=== PATIENT | male | born 2000 | race Caucasian/White ===

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

== ENCOUNTER 2020-08-09 08:24 | Emergency (ER) | payer SELFPAY ==
[2018-11-08 13:01] VITALS: BMI 21.5
[2020-08-09 08:28] VITALS: BP 133/97; PULSE 86; RESP 14; TEMP 37; O2SAT 99; BMI 18.3
--- NOTE | 2020-08-09 09:03 | CT_ITS ---
STUDY: CT ABDOMEN AND PELVIS WITH CONTRAST REASON FOR EXAM: Male, 20 years old. RLQ pain -- IV PO Contrast RADIATION DOSAGE (If Supplied By Facility): CTDIvol = ( 11.26 ) mGy, DLP = ( 317.72 ) mGycm TECHNIQUE: Transaxial images were obtained from the dome of the diaphragm to the symphysis pubis with oral contrast. Oral and IV Gastrografin and 100mL Isovue-370 was administered. Sagittal and coronal images were reconstructed. Individualized dose optimization techniques were used for this CT. COMPARISON: None. FINDINGS: The visualized lung bases are unremarkable. The visualized portions of the heart are within normal limits. Minimal degree of the periportal edema. Normal gallbladder and extrahepatic biliary system. Normal spleen. Normal pancreas. Normal bilateral adrenal glands. Normal right kidney. Normal left kidney. Normal visualized stomach. Normal small intestine. Normal colon. The appendix is visualized and appears normal. Normal abdominal aorta. Normal inferior vena cava. Normal retroperitoneum. Normal urinary bladder. Normal abdominal wall. Normal osseous structures. CT/Abdomen/Pelvis WITH Contrast IMPRESSION: Minimal degree of periportal edematous changes of the liver. Electronically Signed: Dennis Biggs MD at 11:10 EDT , Service support ,
--- NOTE | 2020-08-09 09:03 | ED.VIS.GEN ---
History of Present Illness Chief Complaint: Flank Pain Informant: Patient Narrative: 20-year-old male with no significant past medical history presenting with right lower quadrant pain. He states that it started in the right lower quadrant on Sunday and at first it was tolerable. Over the past couple of days it has gotten worse. He has pain with ambulation and even just moving his leg on the right. Patient states that the car ride makes it hurt worse. He has had diarrhea without hematochezia or melena. Patient has nausea and vomiting but has been able to hold down some fluids. He denies a fever. Patient denies any urinary complaints. He is not had any abdominal trauma. Past Medical History - Allergies and Home Meds Allergies/Adverse Reactions: Allergies No Known Allergies Allergy (Verified 08/09/20 08:27) Primary Care Physician: [facility] [Outside] Care Physician,No Primary [Primary Care Provider] - Prior records reviewed: Yes Past Medical History: - - No significant medical history Surgical History: noncontributory Lives: Spouse/ Significant Other Smoking Status: Never smoker Alcohol: None Drugs: None Review of Systems General: Denies: Chills, Fever, Sweats Eyes: Denies: Visual changes - bilaterally, Diplopia ENT: Denies: Rhinorrhea, Sore throat Cardiovascular: Denies: Chest pain, Palpitations Respiratory: Denies: Dyspnea, Cough, Dyspnea on exertion Gastrointestinal: Reports: Abdominal pain, Nausea, Vomiting, Diarrhea. Denies: Melena, Hematochezia Genitourinary: Denies: Dysuria, Hematuria, Frequency Musculoskeletal: Reports: Myalgias, Arthralgias Skin: Denies: Rash, Abscess Neurological: Denies: Headache, Weakness Psych: Denies: Depression, Anxiety Endocrine: Denies: Polyuria, Polydipsia Physical Exam Vital Signs/Narrative: Vital Signs Temp Pulse Resp BP Pulse Ox 08/09/20 08:28 98.6 F 86 14 133/97 H 99 Inital Vital Signs reviewed: Yes General: Well nourished, No Acute Distress Head: Normocephalic, Atraumatic Eyes: Perrl, EOMI. Negative for: Pale conjunctiva, Scleral icterus ENT: Moist mucous membranes, No rhinorrhea Cardiovascular: Regular rate, Regular rhythm Respiratory: No distress, CTA bilaterally Abdomen: Soft, Nondistended, Tender - Tenderness to palpation right lower quadrant over McBurney's point. , Obturator sign. Negative for: Ventral hernia, Inguinal hernia Back: Nontender, Normal Inspection. Negative for: CVA tenderness Extremities: Nontender, No edema Skin: Normal color, No rash Neurological: Alert, Oriented x3, Cranial nerves II-XII grossly intact Psychological: Normal affect, Normal Mood Diagnostic/Tx/Re-eval Clinical Impression(s) from Imaging Studies Abdomen/Pelvis CT 08/09/20 09:03 IMPRESSION: Minimal degree of periportal edematous changes of the liver. Electronically Signed: Dennis Biggs MD at 11:10 EDT , Service support , Gallbladder Ultrasound 08/09/20 11:56 IMPRESSION: Starry jesús appearance of the hepatic parenchyma. Acute hepatitis should be ruled out. Electronically Signed: Dennis Biggs MD at 13:18 EDT , Service support , Laboratory Data 08/09/20 08/09/20 08/09/20 09:15 09:20 09:20 WBC 3.5 L RBC 5.22 Hgb 14.7 Hct 45.4 MCV 87.0 MCH 28.2 MCHC 32.4 RDW Std Deviation 39.9 RDW Coeff of Janell 12.6 Plt Count 236 MPV 10.4 Immature Gran % (Auto) 0.300 Neut % (Auto) 70.1 H Lymph % (Auto) 21.7 [place] % (Auto) 6.4 Eos % (Auto) 0.6 Baso % (Auto) 0.9 Absolute Neuts (auto) 2.4 Absolute Lymphs (auto) 0.75 L Nucleated RBC % 0 Sodium 141 Potassium 3.3 L Chloride 103 Carbon Dioxide 29.0 Anion Gap 9 BUN 14 Creatinine 0.88 Estim Creat Clear Calc 118.70 Est GFR (MDRD) Af Amer 140 Est GFR (MDRD) Non-Af 115 BUN/Creatinine Ratio 15.8 Glucose 95 Calcium 9.6 Total Bilirubin 4.40 H AST 28 ALT 25 Alkaline Phosphatase 82 Total Protein 7.9 Albumin 4.7 Globulin 3.2 Albumin/Globulin Ratio 1.5 Lipase 63 L Urine Color Yellow Urine Clarity Sl. Cloudy Urine pH 5.0 Ur Specific [place] 1.030 Urine Protein 30 H Urine Glucose (UA) Normal Urine Ketones 150 H Urine Occult Blood 10 H Urine Nitrite Negative Urine Bilirubin Negative Urine Urobilinogen Normal Ur Leukocyte Esterase Negative Urine RBC 0 SEEN Urine WBC 0 SEEN Ur Squamous Epith Cells 0 SEEN Urine Bacteria RARE Urine Mucus 1+ - Medical Decision Making Plan 20-year-old male presenting with right lower quadrant pain. Patient had lab work drawn which showed he was leukopenic and lymphopenic. Patient does not have any respiratory complaints. He has no body aches or chills. He states he has no medical problems. His other lab work was unremarkable exception of an elevated bilirubin at 4.4 his other LFTs were normal.. CT of the abdomen pelvis with p.o. and IV contrast showed no appendicitis, however it did show some periportal edema. On reevaluation when I palpate the patient's right upper quadrant he has mild tenderness but does not have a Givens sign. He had ultrasound of the right upper quadrant which showed a starry jesús appearance and recommended ruling out hepatitis. Patient's mother then stated that he had had all of his immunizations growing up. He has no risk factors for hepatitis. I did send a hepatitis panel. Given this is a send out I recommended that they follow-up for this result. Patient does not have insurance or a primary care physician. Recommended [facility] for follow-up. He did acknowledge understanding. He is given return precautions. Patient stable at this time. Impression: 1. Elevated bilirubin 2. Right lower quadrant pain ED Disposition - Plan for ED Patient: Disposition: Home or Assisted Living Instructions: ED Unknown Causes of Abdominal ... Referrals: Care Physician,No Primary [Primary Care Provider] - [facility] [Outside] Additional Instructions: Your bilirubin is elevated at 4.4 today and your other liver function tests are normal. We are pending a hepatitis panel. Please follow-up and obtain primary care. He will likely have to call medical records to obtain results. Return for any new or worsening symptoms.
[2020-08-09] MEDS: Morphine 4 MG/ML Syringe IV ×2 (09:24→12:30)
[2020-08-09] MEDS: Ondansetron 4 MG/2 ML Vial IV ×2 (09:24→12:30)
[2020-08-09] MEDS: 0.9% Normal Saline 1,000 ML 1000 ML IV (09:25)
[2020-08-09 09:28] LABS: Red Blood Cells-Urine 0 SEEN /hpf (0-5); Squamous Epithelial Cells - UA 0 SEEN /hpf (0-5); White Blood Cells 0 SEEN /hpf (0-5)
[2020-08-09 09:32] LABS: Absolute Lymphocyte Count 0.75 X10^3/uL (0.83-4.51); Absolute Neutrophil Count 2.4 X10^3/uL (2.0-7.7); Basophil# 0.03 X10^3/uL; Basophil% 0.9 % (0-1); Eosinophil# 0.02 X10^3/uL; Eosinophils% 0.6 % (0-5); Hematocrit 45.4 % (40-54); Hemoglobin 14.7 g/dL (13.0-16.5); Lymphocyte # 0.75 X10^3/ul (0.83-4.51); Lymphocyte % 21.7 % (19-41); Mean Corp Hgb Conc 32.4 g/dL (32-36); Mean Corpuscular Hgb 28.2 pg (27.0-32.0); Mean Platelet Vol. 10.4 fl (6.2-12.0); Monocyte# 0.22 X10^3/uL; Monocyte% 6.4 % (0-10); NRBC Flagged by Analyzer 0 % (0-5); Neutrophil # 2.43 X10^3/uL (2.7-7.7); Neutrophil % 70.1 % (47-70); Platelet Count 236 K/mm3 (150-450); RBC Distribution Width CV 12.6 % (11.6-14.6); RBC Distribution Width SD 39.9 fl (35.1-43.9); Red Blood Count 5.22 M/mm3 (4.6-6.2); White Blood Count 3.5 K/mm3 (4.4-11.0)
[2020-08-09 09:37] LABS: Color, Urine Yellow (Yellow); Glucose, Dipstick Normal (Normal); Leukocyte Esterase-Dipstick Negative /ul (Negative); Nitrite-Dipstick Negative (Negative); Occult Blood-Urine 10 /ul (Negative); Protein-Dipstick 30 mg/dl (Negative); Urine Bilirubin Dipstick Negative (Negative); Urine Clarity Sl. Cloudy (Clear); Urine Urobilinogen Normal (Normal)
[2020-08-09 09:39] LABS: Ketone-Dipstick 150 mg/dl (Negative)
[2020-08-09 09:43] LABS: Bacteria RARE /hpf (None Seen); Mucous, Urine 1+ /hpf (<or=2+)
[2020-08-09 09:47] LABS: ALB/GLOB Ratio 1.5 RATIO (0.9-2.4); AST(SGOT) 28 U/L (15-37); Alanine Aminotransfer ALT/SGPT 25 U/L (16-61); Albumin, Serum 4.7 g/dL (3.2-5.0); Alkaline Phosphatase 82 U/L (45-117); Anion Gap 9 (5-15); BUN 14 mg/dL (7-18); BUN/Creat Ratio 15.8 RATIO (10-20); Calcium,Total 9.6 mg/dL (8.5-10.1); Chloride 103 mmol/L (98-107); Creatinine, Serum 0.88 mg/dL (0.70-1.30); EST Glomerular Filtration Rate 115 mL/min (>60); Est Glom Filt Rate - Afr Amer 140 mL/min (>60); Globulin 3.2 g/dL (2.2-4.2); Glucose 95 mg/dL (74-106); Lipase 63 U/L (73-393); Potassium 3.3 mmol/L (3.5-5.1); Protein, Total 7.9 g/dL (6.4-8.2); Sodium Level 141 mmol/L (136-145)
[2020-08-09 10:40] VITALS: BP 109/62; PULSE 65; RESP 18; O2SAT 100
--- NOTE | 2020-08-09 11:56 | US_ITS ---
STUDY: ABDOMINAL ULTRASOUND - RIGHT UPPER QUADRANT REASON FOR VISIT: Male, 20 years old 3 day history of right upper quadrant pain. TECHNIQUE: Ultrasound evaluation of the right upper quadrant was performed with real-time and static iraheta-scale imaging. TECHNICAL QUALITY: Adequate. COMPARISON: Comparison is made with prior CT scan of the abdomen and pelvis done earlier in the day. FINDINGS: Liver: The liver measures 14.3 cm. There is evidence of a starry jesús appearance of the hepatic parenchyma suggestive of centrilobular edema. Acute hepatitis should be ruled out. The bile ducts are within normal limits. There is hepatic color flow. The direction of portal flow is hepatopetal. There is no demonstrated mass lesion. Gallbladder: Normal distended gallbladder. The gallbladder wall measures 2 mm. There is a negative sonographic Givens''s sign. There is no pericholecystic fluid. There are no gallstones. Common Bile Duct (C.B.D.): The common bile duct measures 2 mm. Pancreas: Normal size of the head, body and tail of the pancreas. There is normal echogenicity of the pancreas. There is no demonstrated pancreatic mass or cyst. Right Kidney: Normal size of the right kidney. The right kidney measures 10.3 cm x 5.6 cm x 4.9 cm. Normal renal cortex. The right cortex measures 1.4 cm. There is no demonstrated renal mass or cyst. There is no right hydronephrosis. US/Gallbladder IMPRESSION: Starry jesús appearance of the hepatic parenchyma. Acute hepatitis should be ruled out. Electronically Signed: Dennis Biggs MD at 13:18 EDT , Service support ,
[2020-08-09 12:50] VITALS: BP 121/77; PULSE 69; RESP 18; O2SAT 100
[2020-08-09 14:16] VITALS: BP 117/76; PULSE 62; RESP 14; O2SAT 98
[2020-08-10 08:09] LABS: HEPATITIS B SURFACE AG Negative (Negative); Hepatitis A IgM Antibody Negative (Negative); Hepatitis B Core AB IgM Negative (Negative)
[2020-08-10 12:48] LABS: Hep C Antibodies <0.1 s/co ratio (0.0-0.9)
== END 2020-08-09 14:16 | disposition home or self-care (01) ==
PROVIDERS: Emergency Provider Student in an Organized Health Care Education/Training Program
DX: R10.31 Right lower quadrant pain (principal); R17 Unspecified jaundice
CPT/HCPCS: 74177; 76705; 80053; 80074; 81001; 83690; 85025; 96361; 96374; 96375; 96376; 99283; J7030; Q9967; A4216; J2405

== ENCOUNTER → 2020-08-19 11:27 | Outpatient (CLI) | payer MEDICAID, SELFPAY ==
[2020-08-09 08:28] VITALS: BMI 18.3
[2020-08-19 12:36] LABS: Absolute Lymphocyte Count 1.15 X10^3/uL (0.83-4.51); Basophil# 0.03 X10^3/uL; Basophil% 0.8 % (0-1); Eosinophil# 0.13 X10^3/uL; Eosinophils% 3.6 % (0-5); Hematocrit 44.9 % (40-54); Hemoglobin 14.5 g/dL (13.0-16.5); Lymphocyte # 1.15 X10^3/ul (0.83-4.51); Lymphocyte % 31.6 % (19-41); Mean Corp Hgb Conc 32.3 g/dL (32-36); Mean Corpuscular Hgb 28.2 pg (27.0-32.0); Mean Corpuscular Volume 87.4 fL (80-94); Mean Platelet Vol. 11.4 fl (6.2-12.0); Monocyte# 0.32 X10^3/uL; Monocyte% 8.8 % (0-10); NRBC Flagged by Analyzer 0 % (0-5); Neutrophil % 54.9 % (47-70); Platelet Count 230 K/mm3 (150-450); RBC Distribution Width CV 13.1 % (11.6-14.6); Red Blood Count 5.14 M/mm3 (4.6-6.2); White Blood Count 3.6 K/mm3 (4.4-11.0)
[2020-08-19 12:40] LABS: Prothrombin Time (Protime)PT. 12.9 SECONDS (11.7-14.9)
[2020-08-19 13:00] LABS: BNP,B-Type NATRIURETIC PEPTIDE < 2.0 pg/mL (0-100)
[2020-08-19 13:06] LABS: Acetaminophen (Tylenol) Level < 2.0 ug/mL (10.0-30.0)
[2020-08-19 13:10] LABS: ALB/GLOB Ratio 1.3 RATIO (0.9-2.4); AST(SGOT) 8 U/L (15-37); Alanine Aminotransfer ALT/SGPT 16 U/L (16-61); Albumin, Serum 4.3 g/dL (3.2-5.0); Alkaline Phosphatase 73 U/L (45-117); Anion Gap 6 (5-15); BUN 13 mg/dL (7-18); BUN/Creat Ratio 14.5 RATIO (10-20); Calcium,Total 9.3 mg/dL (8.5-10.1); Chloride 105 mmol/L (98-107); EST Glomerular Filtration Rate 114 mL/min (>60); Est Glom Filt Rate - Afr Amer 138 mL/min (>60); Globulin 3.2 g/dL (2.2-4.2); Glucose 82 mg/dL (74-106); Iron 145 ug/dL (65-175); Iron Binding Capacity,Total 273 ug/dL (250-450); PERCENT IRON SATURATION 53.1 % (15.0-55.0); Potassium 3.9 mmol/L (3.5-5.1); Protein, Total 7.5 g/dL (6.4-8.2); Sodium Level 140 mmol/L (136-145); T4 Free Direct 1.11 ng/dL (0.76-1.46); Thyroid Stim Hormone (TSH) 1.11 uIU/mL (0.358-3.74)
[2020-08-20 20:08] LABS: Endomysial Antibody IgA Negative (Negative); Immunoglobulin A 170 mg/dL (90-386)
[2020-08-20 20:47] LABS: ANTINUCLEAR ANTIBODIES DIRECT Negative (Negative); Anti-Mitochondrial AB <20.0 Units (0.0-20.0)
[2020-08-20 20:51] LABS: EBV Early Antigen IgG <9.0 U/mL (0.0-8.9); EBV-VCA IgG > 600.0 U/mL (0.0-17.9); H. Pylori Antibody (IgG) 0.16 (0.00-0.79); t-Transglutaminase IgA <2 U/mL (0-3)
== END ==
PROVIDERS: Referring Provider Nurse Practitioner Adult Health; Visit Provider Nurse Practitioner Adult Health
DX: R10.13 Epigastric pain (principal); R19.7 Diarrhea, unspecified; R11.2 Nausea with vomiting, unspecified; R06.02 Shortness of breath; R63.4 Abnormal weight loss
CPT/HCPCS: 36415; 80053; 80329; 82784; 83516; 83540; 83550; 83695; 83880; 84439; 84443; 85025; 85610; 86038; 86255; 86663; 86665; 86677; G0480

== ENCOUNTER → 2021-03-08 10:03 | Outpatient (CLI) | payer OTHER, MEDICAID, SELFPAY ==
--- NOTE | 2021-03-08 10:06 | US_ITS ---
INDICATION: ABD PAIN EXAMINATION: Ultrasound US Abdomen Complete TECHNIQUE: Murillo-scale and color Doppler imaging was performed of the abdomen. COMPARISON: Abdomen ultrasound from 08/09/2020. CT abdomen/pelvis from 08/09/2020. FINDINGS: LIVER: There is normal echotexture. No focal hepatic lesion. No intrahepatic biliary ductal dilatation. There is no free fluid. GALLBLADDER AND BILIARY TREE: No shadowing gallstone, pericholecystic fluid or gallbladder wall thickening is demonstrated. The proximal common bile duct measures 1 mm, which is within normal limits for the patient''s age. SONOGRAPHIC MONTILLA''S SIGN: Negative. PANCREAS: No focal abnormality is demonstrated in the pancreas. No pancreatic ductal dilatation. SPLEEN: The spleen is normal in size and homogeneous in echotexture. A small accessory spleen/splenule is noted. KIDNEYS: The right kidney measures 11.0 x 6.4 x 4.3 cm. The left kidney measures 11.5 x 5.8 x 4.8 cm. Both kidney sizes are within normal limits. There is no hydronephrosis. No shadowing calculus, focal lesion, or perinephric collection is demonstrated. VESSELS: Submitted longitudinal images of the intra-abdominal aorta demonstrate no gross abnormalities and are unremarkable. The IVC is patent. US/Abdomen Complete IMPRESSION: Unremarkable abdominal radiograph. Electronically Signed: Jorge Rick MD at 16:06 EST Tel , Service support ,
[2021-03-08 11:19] LABS: Hematocrit 42.9 % (40-54); Hemoglobin 13.9 g/dL (13.0-16.5); Mean Corp Hgb Conc 32.4 g/dL (32-36); Mean Corpuscular Hgb 28.1 pg (27.0-32.0); Mean Corpuscular Volume 86.7 fL (80-94); Mean Platelet Vol. 10.3 fl (6.2-12.0); Platelet Count 223 K/mm3 (150-450); RBC Distribution Width CV 12.8 % (11.6-14.6); RBC Distribution Width SD 40.5 fl (35.1-43.9); Red Blood Count 4.95 M/mm3 (4.6-6.2); White Blood Count 3.9 K/mm3 (4.4-11.0)
[2021-03-08 11:50] LABS: ALB/GLOB Ratio 1.2 RATIO (0.9-2.4); AST(SGOT) 11 U/L (15-37); Alanine Aminotransfer ALT/SGPT 16 U/L (16-61); Alkaline Phosphatase 71 U/L (45-117); Anion Gap 6 (5-15); BUN 15 mg/dL (7-18); BUN/Creat Ratio 17.9 RATIO (10-20); Calcium,Total 9.4 mg/dL (8.5-10.1); Chloride 105 mmol/L (98-107); Creatinine, Serum 0.84 mg/dL (0.70-1.30); EST Glomerular Filtration Rate 122 mL/min (>60); Est Glom Filt Rate - Afr Amer 148 mL/min (>60); Globulin 3.3 g/dL (2.2-4.2); Glucose 87 mg/dL (74-106); Lipase 164 U/L (73-393); Potassium 4.1 mmol/L (3.5-5.1); Protein, Total 7.3 g/dL (6.4-8.2); Sodium Level 140 mmol/L (136-145)
== END ==
PROVIDERS: PCP Nurse Practitioner Adult Health; Referring Provider Nurse Practitioner Adult Health; Visit Provider Nurse Practitioner Adult Health
DX: R10.84 Generalized abdominal pain (principal); B27.00 Gammaherpesviral mononucleosis without complication
CPT/HCPCS: 36415; 76700; 80053; 83690; 85027

== ENCOUNTER 2021-12-06 07:10 | Emergency (ER) | payer MEDICAID, SELFPAY ==
[2021-12-06 07:11] VITALS: BP 129/74; PULSE 82; RESP 14; TEMP 36.2; O2SAT 99
--- NOTE | 2021-12-06 07:32 | EDS_ITS ---
HPI History of Present Illness Chief Complaint: Chest Other Informant: patient Narrative Narrative: 21-year-old male states that on Sunday he had an episode of lower left chest wall pain. He states it radiated to his left arm. It eventually went away and he was fine through the weekend and today while he was driving he got a similar pain. However today he is pointing more into his epigastrium and left upper quadrant of his abdomen. He notes that he has not been as hungry for the past few days. He notes a decrease amount of gas. He states he did not feel much like eating today. No diarrhea. No cough or fevers. He denies black or bloody stools. [facility] Medical History Cat allergies cigarette smoke allergy Home Medications pantoprazole 40 mg tablet,delayed release (Protonix) 40 mg PO DAILY #30 tabs 12/06/21 [Rx Last Taken Unknown] Allergy/AdvReac Type Severity Reaction Status Date / Time No Known Allergies Allergy Verified 12/06/21 07:11 Family History Other weak knees Social History Smoking Status: Current every day smoker tobacco type: cigarettes alcohol intake: never ROS ROS ED Constitutional Constitutional ED: Denies chills or weight loss Eyes Eyes: Denies change in vision or diplopia ENT ENT ED: Denies ear pain, rhinorrhea or sore throat Cardiovascular Cardiovascular: Reports chest pain; Denies orthopnea, palpitations or racing heartbeat Respiratory/Chest Respiratory/Chest: Denies cough, dyspnea or orthopnea Gastrointestinal Gastrointestinal: Reports abdominal pain; Denies diarrhea, nausea or vomiting Genitourinary Genitourinary ED: Denies dysuria, hematuria or urinary frequency Musculoskeletal Musculoskeletal: Denies arthralgias or myalgias Integumentary Denies abscess or rash Neurologic Neurologic: Denies headache(s) or weakness Psychiatric Psychiatric: Denies anxiety, depression, suicidal ideation or suicidal thoughts Endocrine Endocrinology: Denies polydipsia, polyphagia or polyuria Allergic/Immunologic Allergic/Immunologic ED: Denies mouth swelling, tongue swelling or urticaria EXAM Physical Exam Const Vital Signs: 12/06/21 07:11 12/06/21 07:21 Temperature 97.2 F L Temperature Source Temporal Pulse Rate 82 Respiratory Rate 14 Respiratory Effort Normal Non-Labored Blood Pressure 129/74 H Blood Pressure Mean 92 Pulse Ox 99 Oxygen Delivery Method Room Air Positive well nourished and well developed General Appearance ED: well developed HEENT Reports normocephalic, head/scalp atraumatic and moist mucous membranes Eyes PERRL and EOMs intact bilaterally Neck no lymphadenopathy, supple and no JVD Resp normal respiratory effort and clear to auscultation bilaterally Cardio regular rate, regular rhythm and no murmurs GI GI Narrative: Patient with tenderness to palpation of the epigastrium and left upper quadrant of the abdomen Palpation: soft and tender; Negative for guarding or rebound tenderness present Back/Spine no CVA tenderness and normal ROM Extremity normal to inspection General Extremety ED: Negative for edema General Extremity: Negative for edema Neuro oriented x3 and CN's II-XII intact bilaterally Sensorium / Orientation: alert Motor Exam: strength 5/5 throughout Psych mental status grossly normal Mood & Affect: Negative for depressed or tearful Skin no rashes or lesions noted and no wounds MDM MDM MDM Narrative Medical decision making narrative: EKG is a normal sinus rhythm. White count 3.3. CMP with a total bilirubin of 1.7 and a lipase of 124. My interpretation of the chest x-ray is no acute process. Patient clinically appears quite stable. Labs are reassuring. His pain is in his epigastrium. I question whether or not this could be some gastritis. I will start him on Protonix and have him follow-up with primary care. Lab Data Attestation: I reviewed the patient's lab results. Labs: Laboratory Results - last 24 hr 12/06/21 12/06/21 07:45 07:45 WBC 3.3 L RBC 4.89 Hgb 14.1 Hct 42.2 MCV 86.3 MCH 28.8 MCHC 33.4 RDW Std Deviation 40.3 RDW Coeff of Janell 12.9 Plt Count 198 MPV 10.3 Immature Gran % (Auto) 0.300 Neut % (Auto) 58.1 Lymph % (Auto) 25.1 [place] % (Auto) 10.7 H Eos % (Auto) 4.6 Baso % (Auto) 1.2 H Absolute Neuts (auto) 1.9 L Absolute Lymphs (auto) 0.82 L Nucleated RBC % 0 Sodium 140 Potassium 3.9 Chloride 107 Carbon Dioxide 28.0 Anion Gap 5 BUN 12 Creatinine 0.79 Estim Creat Clear Calc 139.20 Est GFR (MDRD) Af Amer 158 Est GFR (MDRD) Non-Af 131 BUN/Creatinine Ratio 15.2 Glucose 93 Calcium 9.2 Total Bilirubin 1.70 H AST 19 ALT 27 Alkaline Phosphatase 68 Total Protein 7.1 Albumin 4.0 Globulin 3.1 Albumin/Globulin Ratio 1.3 Lipase 124 Radiography Diagnostic Testing: Clinical Impression(s) from Imaging Studies Chest X-Ray 12/06/21 07:55 IMPRESSION: Normal x-ray examination of the chest. Electronically Signed: Dennis Biggs MD at 8:18 EDT , EKG Initial EKG: Attestation: I personally reviewed and interpreted this EKG as follows: Comments: Normal sinus rhythm with a ventricular rate of 60 bpm Discharge Plan Triage Chief Complaint: Chest Other ED Provider: Kyle Emerson Dx/Rx/DC Orders Clinical Impression: Abdominal pain, Gastritis Instructions: ED Gastritis (Adult) Prescriptions: New pantoprazole [Protonix] 40 mg tablet,delayed release (DR/EC) 40 mg PO DAILY Qty: 30 0RF Primary Care Provider: Maral Dupree Referrals: Maral Dupree, [employer] [Primary Care Provider] - 10-14 Days if not better Disposition Disposition: Home, Self Care
--- NOTE | 2021-12-06 07:32 | EKG12_ITS ---
Test Reason : CHEST\OTHER Blood Pressure : / mmHG Vent. Rate : 060 BPM Atrial Rate : 060 BPM P-R Int : 176 ms QRS Dur : 104 ms QT Int : 398 ms P-R-T Axes : 048 063 068 degrees QTc Int : 398 ms Normal sinus rhythm Normal ECG Confirmed by CATHERINE MERCADO, IVETTE ([id number]), legal editor GABBY TAVERA ([id number]) on 12/07/2021 11:24:08 AM Referred By: Confirmed By:IVETTE ALEXANDER MD
[2021-12-06 07:52] LABS: Absolute Lymphocyte Count 0.82 X10^3/uL (0.83-4.51); Absolute Neutrophil Count 1.9 X10^3/uL (2.0-7.7); Basophil# 0.04 X10^3/uL; Basophil% 1.2 % (0-1); Eosinophil# 0.15 X10^3/uL; Eosinophils% 4.6 % (0-5); Hematocrit 42.2 % (40-54); Hemoglobin 14.1 g/dL (13.0-16.5); Lymphocyte # 0.82 X10^3/ul (0.83-4.51); Lymphocyte % 25.1 % (19-41); Mean Corp Hgb Conc 33.4 g/dL (32-36); Mean Corpuscular Hgb 28.8 pg (27.0-32.0); Mean Corpuscular Volume 86.3 fL (80-94); Mean Platelet Vol. 10.3 fl (6.2-12.0); Monocyte# 0.35 X10^3/uL; Monocyte% 10.7 % (0-10); NRBC Flagged by Analyzer 0 % (0-5); Neutrophil % 58.1 % (47-70); Platelet Count 198 K/mm3 (150-450); RBC Distribution Width CV 12.9 % (11.6-14.6); RBC Distribution Width SD 40.3 fl (35.1-43.9); Red Blood Count 4.89 M/mm3 (4.6-6.2); White Blood Count 3.3 K/mm3 (4.4-11.0)
--- NOTE | 2021-12-06 07:55 | RAD_ITS ---
STUDY: X-RAY CHEST REASON FOR EXAM: Male, 21 years old. Pain TECHNIQUE: Single AP portable view of the chest. COMPARISON: None. FINDINGS: The lungs are clear and expanded. There is no demonstrated pleural abnormality. Normal size heart. Normal mediastinum and javed. Normal visualized pulmonary arteries. Normal visualized aortic arch and descending thoracic aorta. Normal visualized thoracic spine. Normal visualized ribs, clavicles, and shoulders. There is no demonstrated abnormality of the visualized soft tissue structures of the upper abdomen. RAD/Chest 1 View (Portable) IMPRESSION: Normal x-ray examination of the chest. Electronically Signed: Dennis Biggs MD at 8:18 EDT ,
[2021-12-06 08:20] LABS: ALB/GLOB Ratio 1.3 RATIO (0.9-2.4); AST(SGOT) 19 U/L (15-37); Alanine Aminotransfer ALT/SGPT 27 U/L (16-61); Alkaline Phosphatase 68 U/L (45-117); Anion Gap 5 (5-15); BUN 12 mg/dL (7-18); BUN/Creat Ratio 15.2 RATIO (10-20); Calcium,Total 9.2 mg/dL (8.5-10.1); Chloride 107 mmol/L (98-107); Creatinine, Serum 0.79 mg/dL (0.70-1.30); EST Glomerular Filtration Rate 131 mL/min (>60); Est Glom Filt Rate - Afr Amer 158 mL/min (>60); Globulin 3.1 g/dL (2.2-4.2); Glucose 93 mg/dL (74-106); Lipase 124 U/L (73-393); Potassium 3.9 mmol/L (3.5-5.1); Protein, Total 7.1 g/dL (6.4-8.2); Sodium Level 140 mmol/L (136-145)
[2021-12-06 08:35] VITALS: BP 124/77; PULSE 62; RESP 15; O2SAT 99
== END 2021-12-06 08:35 | disposition home or self-care (01) ==
PROVIDERS: Emergency Provider Emergency Medicine; PCP Nurse Practitioner Adult Health; Visit Provider Emergency Medicine
DX: R10.12 Left upper quadrant pain (principal); R10.13 Epigastric pain; K29.70 Gastritis, unspecified, without bleeding; F17.210 Nicotine dependence, cigarettes, uncomplicated
CPT/HCPCS: 71045; 80053; 83690; 85025; 93005; 99283; A4216

== ENCOUNTER 2022-08-15 12:45 | Emergency (ER) | payer OTHER, BC, SELFPAY ==
[2022-08-15 12:47] VITALS: BP 112/73; PULSE 54; RESP 16; TEMP 36.3; O2SAT 100; BMI 20.9
--- NOTE | 2022-08-15 14:44 | EX.ED.UPPERE ---
HPI History of Present Illness Chief Complaint: Laceration Informant: patient Occured/Mechanism Comment: Left hand laceration Onset/Context/Timing Onset: Today Narrative Narrative: Patient presents with lacerations to the left third and fourth fingers. He works at a [employer] and dropped a razor. He instinctively went to catch it and cut his left fourth and fifth fingers. He is unsure of his last tetanus update. [facility] Medical History Cat allergies cigarette smoke allergy Home Medications pantoprazole 40 mg tablet,delayed release (Protonix) 40 mg PO DAILY #30 tabs 12/06/21 [Rx Last Taken Unknown] Allergy/AdvReac Type Severity Reaction Status Date / Time No Known Allergies Allergy Verified 12/06/21 07:11 Family History Other weak knees Social History Smoking Status: Current every day smoker tobacco type: cigarettes alcohol intake: never ROS ROS ED Constitutional Constitutional ED: Denies chills or fever(s) Eyes Eyes: Denies change in vision or discharge from eye(s) ENT ENT ED: Denies discharge from eye(s), rhinorrhea or sore throat Cardiovascular Cardiovascular: Denies chest pain or palpitations Respiratory/Chest Respiratory/Chest: Denies cough or dyspnea Gastrointestinal Gastrointestinal: Denies abdominal pain, nausea or vomiting Musculoskeletal Musculoskeletal: Reports extremity pain; Denies back pain Integumentary Reports other Details: Laceration ; Denies Abrasions or rash Neurologic Neurologic: Denies headache(s) or weakness Psychiatric Psychiatric: Denies anxiety or depression Allergic/Immunologic Allergic/Immunologic ED: Denies lip swelling or urticaria EXAM Physical Exam Const Vital Signs: 08/15/22 12:47 Temperature 97.4 F L Temperature Source Temporal Pulse Rate 54 L Respiratory Rate 16 Blood Pressure 112/73 Blood Pressure Mean 86 Pulse Ox 100 Oxygen Delivery Method Room Air Positive well nourished and well developed General Appearance ED: well developed HEENT Reports moist mucous membranes Eyes PERRL and EOMs intact bilaterally Neck full ROM Chest Wall inspection of chest normal and palpation of chest normal Resp normal respiratory effort and clear to auscultation bilaterally Cardio regular rate and regular rhythm GI non-tender Extremity Extremity Narrative: Patient with superficial lacerations across the flexor surface of the left third and fourth fingers near the PIP joint. Each laceration measures 1.5 cm. Tendon function is fully intact. Sensation and cap refill are normal. Neuro oriented x3 Sensorium / Orientation: alert Psych mental status grossly normal MDM MDM MDM Narrative Medical decision making narrative: Tetanus update provided. Lacerations were thoroughly cleansed. After further exploration the wounds are very superficial and do not believe sutures are needed. Dermabond is applied across both wounds. Dressing applied. Patient will follow-up with [facility]. Discharge Plan Triage Chief Complaint: Laceration ED Provider: Mary Augustin Dx/Rx/DC Orders Clinical Impression: Laceration of finger Instructions: ED Laceration, Hand: All Closures Prescriptions: No Action pantoprazole [Protonix] 40 mg tablet,delayed release (DR/EC) 40 mg PO DAILY Qty: 30 0RF Stand Alone Forms: Work Status Form Primary Care Provider: Maral Dupree Referrals: [facility] [Group of Physicians] - 5-7 Days Maral Dupree, GRID CASTING MACHINE OPERATOR HELPER-C [Primary Care Provider] - Disposition Disposition: Home, Self Care
[2022-08-15] MEDS: Diphth,Pertuss(Acell),Tet Vac 0.5 ML Vial IM (14:54)
== END 2022-08-15 15:03 | disposition home or self-care (01) ==
PROVIDERS: Emergency Provider Emergency Medicine; PCP Nurse Practitioner Adult Health; Visit Provider Emergency Medicine
DX: S61.213A Laceration without foreign body of left middle finger without damage to nail, initial encounter (principal); S61.215A Laceration without foreign body of left ring finger without damage to nail, initial encounter; F17.210 Nicotine dependence, cigarettes, uncomplicated; Z23 Encounter for immunization; W25.XXXA Contact with sharp glass, initial encounter
CPT/HCPCS: 12002; 90471; 90715; 99283

== ENCOUNTER 2023-11-16 20:27 | Emergency (ER) | payer OTHER, SELFPAY ==
[2023-11-16 20:30] VITALS: BP 115/78; PULSE 69; RESP 16; TEMP 36.6; O2SAT 98
[2023-11-16 20:33] VITALS: BMI 21.2
--- NOTE | 2023-11-16 21:17 | CT_ITS ---
EXAM: CT HEAD WITHOUT INTRAVENOUS CONTRAST CLINICAL INDICATION: nail gun fell and hit head TECHNIQUE: Multiple axial images were obtained of the head without intravenous contrast. This CT exam was performed using one or more of the following dose reduction techniques: automated exposure control, adjustment of the mA and/or kV according to patient size, and/or use of iterative reconstruction technique. COMPARISON: No relevant prior studies available. FINDINGS: BRAIN AND EXTRA-AXIAL SPACES: No significant abnormality. No intra- or extra-axial hemorrhage. No evidence of acute infarct. No intracranial mass or mass effect. There is preservation of the iraheta/white matter interface. Ventricles are appropriate for age. Basal cisterns are patent. BONES/JOINTS: No significant abnormality. No discrete lytic or blastic abnormalities. SOFT TISSUES: Right parietal scalp laceration and swelling. SINUSES: Mucosal thickening in the paranasal sinuses. MASTOID AIR CELLS: No significant effusion. ORBITS: No acute findings. CT/Brain/Head without Contrast IMPRESSION: Right parietal scalp laceration and swelling. No CT evidence of acute intracranial pathology or calvarial fracture. Electronically Signed: Chapo Pardo DO at 22:09 EDT ,
[2023-11-16] MEDS: Acetaminophen 500 MG Tablet 1000 MG PO (21:40)
[2023-11-16] MEDS: Diphth,Pertuss(Acell),Tet Vac 0.5 ML Vial IM (21:48)
[2023-11-16] MEDS: Lidocaine 1% (20 ml mdv) 20 ML Vial 10 ML INFILT (23:07)
--- NOTE | 2023-11-17 00:13 | EDS_ITS ---
HPI History of Present Illness Chief Complaint: Head Injury Narrative Narrative: Patient is a 23-year-old male with no known significant past medical history who presents to the emergency department chief complaint of right head cut. Patient states that earlier today he was working and a nail gun fell from approximately 20 feet and struck the right side of his head. He states that he did pass out for a brief second. He states that this happened around 4:00 this afternoon and noted that he has not had any vomiting since the event. He states that he is unsure when his last tetanus shot was. 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 Patient states that he does have mild headache. [facility] Medical History Cat allergies cigarette smoke allergy Home Medications ?Medication ?Instructions ?Recorded ?Last Taken ?Type pantoprazole 40 mg tablet,delayed 40 mg PO DAILY #30 tabs 12/06/21 Unknown Rx release (Protonix) Allergy/AdvReac Type Severity Reaction Status Date / Time No Known Allergies Allergy Verified 12/06/21 07:11 Family History Other weak knees Social History Smoking Status: Current every day smoker tobacco type: cigarettes and e- cigarettes alcohol intake: never ROS ROS ED ROS Narrative Constitutional: Complains of headache as noted above denies any lightheadedness or dizziness Eyes: Denies change in vision double vision blurry vision Cardiovascular: Denies chest pain or palpitations Respiratory: Denies shortness of breath, cough, wheezing Abdomen: Admits to some nausea denies any abdominal pain vomiting diarrhea : Denies any urinary symptoms Neurological: Denies numbness, weakness, tingling Musculoskeletal: Denies any neck pain Skin: Complains of laceration to head as noted above EXAM Physical Exam Narrative Exam Narrative: General: Patient lying in bed rest comfortably did not appear to be acute distress Head: Patient has a approximately 4 and half centimeter laceration to the right side of his head with minimal active bleeding noted Eyes: PERRL bilaterally, EOMI bilaterally, no conjunctival injection noted Neck: Soft, supple, trachea midline. Patient has full range of motion of his neck without any pain Cardiovascular: Regular rate and rhythm no murmurs gallops rubs noted Respiratory: Clear to auscultation bilaterally Abdomen: Soft, nondistended, nontender to palpation Musculoskeletal: No tenderness to palpation midline cervical spine Extremities: +5/5 strength noted in the bilateral upper and lower extremities, no pedal edema on exam, radial pulses +2/4 in the bilateral per extremities Neurological: Patient following commands knew he is [facility] year is 2023 Skin: Patient has a 4 and half centimeter to 5 cm laceration noted along the right side of his head Const Vital Signs: 11/16/23 20:30 11/16/23 20:54 Temperature 97.8 F Temperature Source Tympanic Pulse Rate 69 Respiratory Rate 16 Respiratory Effort Normal Respiratory Depth Normal Respiratory Pattern Normal Blood Pressure 115/78 Blood Pressure Mean 90 Pulse Ox 98 Oxygen Delivery Method Room Air Room Air MDM MDM MDM Narrative Medical decision making narrative: Patient is a 23-year-old male who presents to the emergency department after a nail gun struck the right side of his head. Patient will have a workup performed here on the differential diagnose includes but limited to skin laceration, intracranial hemorrhage, concussion. Once workup is obtained reviewed he will be reevaluated. Patient's CT brain reviewed and showed right parietal scalp laceration swelling no evidence of acute intracranial pathology. Patient had the laceration repaired here in the emergency department tolerated this well with any complications. Patient was encouraged to have his sutures removed in approximately 7 to 10 days. He was encouraged return with worsening symptoms or any concerns. Patient was encouraged to ice and use ibuprofen Tylenol [id number] for pain control. Patient tolerated oral intake here in the emergency department had no emesis. All question concerns answered he is discharged home in stable condition Radiography Diagnostic Testing: Clinical Impression(s) from Imaging Studies Brain CT 11/16/23 21:17 IMPRESSION: Right parietal scalp laceration and swelling. No CT evidence of acute intracranial pathology or calvarial fracture. Electronically Signed: Chapo Pardo DO at 22:09 EDT , Discharge Plan Triage Chief Complaint: Head Injury ED Provider: Asif Harris Dx/Rx/DC Orders Clinical Impression: Scalp laceration Instructions: ED Laceration, All Closures Prescriptions: No Action pantoprazole [Protonix] 40 mg tablet,delayed release (DR/EC) 40 mg PO DAILY Qty: 30 0RF Primary Care Provider: Maral Dupree Referrals: Maral Dupree, WIRE SAWYER-C [Primary Care Provider] - Activity Restrictions/Additional Instructions: Have sutures removed in 7 to 10 days. Return with worsening symptoms or other concerns. Ice, use ibuprofen Tylenol [id number] for pain control. Your tetanus shot was updated here today. Print Language: Jamaican Disposition Disposition: Home, Self Care
== END 2023-11-17 00:23 | disposition home or self-care (01) ==
PROVIDERS: Emergency Provider Emergency Medicine; PCP Nurse Practitioner Adult Health; Visit Provider Emergency Medicine
DX: S01.01XA Laceration without foreign body of scalp, initial encounter (principal); Z23 Encounter for immunization; W20.8XXA Other cause of strike by thrown, projected or falling object, initial encounter; Y99.0 Civilian activity done for income or pay; F17.210 Nicotine dependence, cigarettes, uncomplicated; F17.290 Nicotine dependence, other tobacco product, uncomplicated
CPT/HCPCS: 12002; 70450; 99284

== ENCOUNTER 2023-11-26 13:09 | Emergency (ER) | payer OTHER, SELFPAY ==
[2023-11-26 13:11] VITALS: BP 132/98; PULSE 65; RESP 19; TEMP 36.7; O2SAT 97; BMI 20.3
--- NOTE | 2023-11-26 15:56 | EX.ED.VIS.HA ---
HPI History of Present Illness Chief Complaint: Headache Informant: patient Narrative Narrative: Patient is a 23-year-old male with history of recent history of scalp injury requiring sutures presenting for suture move as well as elevation of ongoing headaches, fever, nausea and vomiting. Patient went to urgent care earlier today to have sutures removed. There he was noted to have a fever of 101.1 temporally. He told about who has been having nosebleeds (5 in the last few days), worsening headaches and feeling lightheaded and passing out. He has had nausea, vomiting and diarrhea over the past few days but should be that taking Tylenol or eating chicken. Given the combination of symptoms he was sent to the ER for further evaluation and suture removal. Notes he did have a CT with his initial injury. States he has been sleeping well because of headaches. Is only taking Tylenol for symptoms. Initially denies any abdominal pain but on further discussion states he has had some mild pain in his lower abdomen more so on the right. He thinks it is from his 4 [place] tafoya's jumping up on him. Denies any sick contacts. Denies any URI symptoms. Notes couple days his right ear felt numb. He did notice some dried blood in his right ear. Denies any sore throat or cough. Denies any rash or skin changes. No other complaints or concerns at this time. Did take Tylenol prior to coming to the ER. [facility] Medical History Cat allergies cigarette smoke allergy Home Medications ?Medication ?Instructions ?Recorded ?Last Taken ?Type ondansetron 4 mg disintegrating 4 mg PO Q8H PRN PRN Nausea #20 tabs 11/26/23 Unknown Rx tablet Allergy/AdvReac Type Severity Reaction Status Date / Time No Known Allergies Allergy Verified 11/26/23 12:18 Family History Other weak knees Social History Smoking Status: Current every day smoker tobacco type: cigarettes and e-cigarettes alcohol intake: never ROS ROS ED Constitutional Constitutional ED: Reports chills, fever(s) and other Details: syncope Eyes Eyes: Reports blurry vision Cardiovascular Cardiovascular: Denies chest pain Respiratory/Chest Respiratory/Chest: Denies cough or dyspnea Gastrointestinal Gastrointestinal: Reports abdominal pain, diarrhea, nausea and vomiting Genitourinary Genitourinary ED: Denies dysuria or hematuria Musculoskeletal Musculoskeletal: Denies arthralgias, myalgias or neck pain Integumentary Reports other Details: laceration to scalp with sutures in place Neurologic Neurologic: Reports headache(s), paresthesias and other Details: Trending of episode of paresthesias to the right ear ; Denies weakness Psychiatric Psychiatric: Denies anxiety Hematologic/Lymphatic Hematologic/Lymphatic: Denies easy bleeding or easy bruising EXAM Physical Exam Const Vital Signs: 11/26/23 13:11 11/26/23 15:52 11/26/23 16:01 Temperature 98.1 F 98.5 F Temperature Source Temporal Oral Pulse Rate 65 56 L Respiratory Rate 19 H 16 Respiratory Effort Normal Non-Labored Respiratory Pattern Normal Blood Pressure 132/98 H 116/74 Blood Pressure Mean 109 88 Pulse Ox 97 100 Oxygen Delivery Method Room Air Room Air 11/26/23 17:44 Temperature Temperature Source Pulse Rate 60 Respiratory Rate Respiratory Effort Respiratory Pattern Blood Pressure 120/74 Blood Pressure Mean 89 Pulse Ox Oxygen Delivery Method Positive well nourished and well developed General Appearance ED: well developed and NAD HEENT Reports normocephalic and TM's clear HEENT Narrative: No signs of epistaxis at this time. Normal nasal septum. Patient does have a well-healed laceration to his right parietal scalp with sutures in place. No associated fluctuance or drainage appreciated. Tympanic Membrane ED: Yes TM's clear Eyes PERRL and EOMs intact bilaterally Neck no lymphadenopathy, supple and no meningeal signs Neck Narrative: No pain with range of motion of the neck. Resp normal respiratory effort and clear to auscultation bilaterally Cardio regular rate and regular rhythm GI non-distended Auscultation: normoactive bowel sounds Palpation: soft and tender RLQ and suprapubic; Negative for guarding or rigid Back/Spine no CVA tenderness Extremity normal to inspection and full ROM Neuro oriented x3 and no sensory deficits noted Motor Exam: strength 5/5 throughout; Negative for general weakness Psych mental status grossly normal Skin Lesions: no lesions Rashes: no rashes MDM MDM MDM Narrative Medical decision making narrative: Patient evaluated for headache and mildly elevated blood pressure at urgent care as well as suture removal as well as continued headaches and nausea vomiting diarrhea. Patient appears nontoxic no acute distress. Complain of a mild headache. Did have a recent head injury with a CT of the brain. The wound appears to be well-healed with no secondary infection. Sutures removed by myself at the bedside. Patient tolerated this well with no complications. Repeat CT of the brain obtained given he is having fever and worsening symptoms as well as nausea and vomiting. This all could be postconcussive syndrome. He does not have any meningeal signs, nuchal rigidity and I have a low suspicion for meningitis. In addition he is afebrile here. Patient is also complaining of nausea vomiting diarrhea and on exam does have tenderness in his abdomen more pronounced in the right lower quadrant. CT abdomen pelvis is also obtained to rule out appendicitis or other acute intra-abdominal pathology. Workup largely negative. He has a normal white blood cell count, CMP and urinalysis. CT of the brain as well as CT of the pelvis did not show any acute process. Patient was given IV fluids, Reglan and Toradol and does have improvement of symptoms. He states he still is a mild headache that is more of a pressure now. Will be given outpatient referral for neurology given his postconcussive symptoms. Is encouraged return to emergency room he has progression or worsening of symptoms. Is also given referral for ENT for his nosebleeds. I do not see any obvious area amenable to cautery at this time on exam he does not have any epistaxis at this time. His platelets are normal and his normal red blood cell count. Patient agreeable this plan of care. Is given return precautions. Discharged home in stable condition. Patient is eating takeout at time of discharge. Lab Data Attestation: I reviewed the patient's lab results. Labs: Laboratory Results - last 24 hr 11/26/23 16:05 WBC 6.2 RBC 4.81 Hgb 14.1 Hct 42.1 MCV 87.5 MCH 29.3 MCHC 33.5 RDW Std Deviation 42.4 RDW Coeff of Janell 13.2 Plt Count 220 MPV 10.3 Immature Gran % (Auto) 0.300 Neut % (Auto) 57.5 Lymph % (Auto) 25.6 [place] % (Auto) 7.7 Eos % (Auto) 8.1 H Baso % (Auto) 0.8 Absolute Neuts (auto) 3.6 Absolute Lymphs (auto) 1.59 Nucleated RBC % 0 Sodium 139 Potassium 3.9 Chloride 107 Carbon Dioxide 30.0 Anion Gap 2 L BUN 12 Creatinine 0.78 Estim Creat Clear Calc 140.54 Est GFR (MDRD) Af Amer 157 Est GFR (MDRD) Non-Af 130 BUN/Creatinine Ratio 15.4 Glucose 99 Calcium 9.1 Total Bilirubin 2.00 H AST 26 ALT 28 Alkaline Phosphatase 81 Total Protein 7.1 Albumin 3.9 Globulin 3.2 Albumin/Globulin Ratio 1.2 Urine Color Yellow Urine Clarity Sl. Cloudy Urine pH 6.5 Ur Specific [place] 1.020 Urine Protein 15 H Urine Glucose (UA) Normal Urine Ketones Negative Urine Occult Blood 10 H Urine Nitrite Negative Urine Bilirubin Negative Urine Urobilinogen 1 H Ur Leukocyte Esterase Negative Urine RBC 0 SEEN Urine WBC 0 SEEN Ur Squamous Epith Cells 0 SEEN Urine Bacteria 0 SEEN Urine Mucus 0 SEEN Radiography Diagnostic Testing: Clinical Impression(s) from Imaging Studies Brain CT 11/26/23 16:15 IMPRESSION: Negative head/brain CT without intravenous contrast. Electronically Signed: Raghu Avila MD at 16:59 EDT , Abdomen/Pelvis CT 11/26/23 16:44 IMPRESSION: Negative CT of the abdomen and pelvis with intravenous contrast. Electronically Signed: Raghu Avila MD at 17:25 EDT , Discharge Plan Triage Chief Complaint: Headache Other Complaint: Fever ED Provider: Gosia Duvall Dx/Rx/DC Orders Clinical Impression: Post-concussion headache, Encounter for removal of sutures, Abdominal pain of unknown cause Instructions: ED Concussion, Sutr or Stap Removal Prescriptions: New ondansetron 4 mg tablet,disintegrating 4 mg PO Q8H PRN PRN (Reason: Nausea) Qty: 20 0RF Primary Care Provider: Maral Dupree [facility] Referrals: Daniel Murray MD [Med Staff - Active Staff] - As Needed Luis Cain MD [Non-Staff -Ordering Privileges] - 10-14 Days if not better Maral Dupree, ASSISTANT COMMUNITY MANAGER-C [Primary Care Provider] - Activity Restrictions/Additional Instructions: The cause of your fever is not clear. You do not have signs of meningitis on physical exam. Your blood work is normal. I suspect her symptoms are more associated with concussive syndrome. I do recommend taking [id number] ibuprofen (up to 3 tablets (600 mg) every 6 hours. And make sure you are practicing brain and body rest. Continue to follow-up outpatient. You have been given referral for neurology. Return if you have progression or worsening of your symptoms Print Language: Hebrew Disposition Disposition: Home, Self Care
[2023-11-26 16:01] VITALS: BP 116/74; PULSE 56; RESP 16; TEMP 36.9; O2SAT 100
[2023-11-26] MEDS: 0.9% Normal Saline (1000mL) 1,000 ML 1000 ML IV (16:07)
--- NOTE | 2023-11-26 16:15 | CT_ITS ---
EXAM: CT HEAD WITHOUT INTRAVENOUS CONTRAST CLINICAL INDICATION: headahce, post trauamtic, TECHNIQUE: Multiple axial images were obtained of the head without intravenous contrast. This CT exam was performed using one or more of the following dose reduction techniques: automated exposure control, adjustment of the mA and/or kV according to patient size, and/or use of iterative reconstruction technique. COMPARISON: 11/16/2023 FINDINGS: BRAIN AND EXTRA-AXIAL SPACES: Unremarkable. No intra- or extra-axial hemorrhage. No evidence of acute infarct. No intracranial mass or mass effect. There is preservation of the riaheta/white matter interface. Posterior fossa structures are unremarkable. Ventricles are appropriate for age. No hydrocephalus. Basal cisterns are patent. BONES/JOINTS: Unremarkable. No discrete lytic or blastic abnormalities. SINUSES: Unremarkable as visualized. Clear. MASTOID AIR CELLS: Unremarkable. Clear. ORBITS: Visualized globes, extraocular muscles, optic nerves and retrobulbar fat appear unremarkable. CT/Brain/Head without Contrast IMPRESSION: Negative head/brain CT without intravenous contrast. Electronically Signed: Raghu Avila MD at 16:59 EDT ,
[2023-11-26 16:18] LABS: Bacteria 0 SEEN /hpf (None Seen); Mucous, Urine 0 SEEN /hpf (<or=2+); Red Blood Cells-Urine 0 SEEN /hpf (0-5); Squamous Epithelial Cells - UA 0 SEEN /hpf (0-5); White Blood Cells 0 SEEN /hpf (0-5)
[2023-11-26 16:21] LABS: Absolute Lymphocyte Count 1.59 X10^3/uL (0.83-4.51); Absolute Neutrophil Count 3.6 X10^3/uL (2.0-7.7); Basophil# 0.05 X10^3/uL; Basophil% 0.8 % (0-1); Color, Urine Yellow (Yellow); Eosinophils% 8.1 % (0-5); Glucose, Dipstick Normal (Normal); Hematocrit 42.1 % (40-54); Hemoglobin 14.1 g/dL (13.0-16.5); Ketone-Dipstick Negative (Negative); Leukocyte Esterase-Dipstick Negative /ul (Negative); Lymphocyte # 1.59 X10^3/ul (0.83-4.51); Lymphocyte % 25.6 % (19-41); Mean Corp Hgb Conc 33.5 g/dL (32-36); Mean Corpuscular Hgb 29.3 pg (27.0-32.0); Mean Corpuscular Volume 87.5 fL (80-94); Mean Platelet Vol. 10.3 fl (6.2-12.0); Monocyte# 0.48 X10^3/uL; Monocyte% 7.7 % (0-10); NRBC Flagged by Analyzer 0 % (0-5); Neutrophil # 3.56 X10^3/uL (2.7-7.7); Neutrophil % 57.5 % (47-70); Nitrite-Dipstick Negative (Negative); Occult Blood-Urine 10 /ul (Negative); Platelet Count 220 K/mm3 (150-450); Protein-Dipstick 15 mg/dl (Negative); RBC Distribution Width CV 13.2 % (11.6-14.6); RBC Distribution Width SD 42.4 fl (35.1-43.9); Red Blood Count 4.81 M/mm3 (4.6-6.2); Urine Bilirubin Dipstick Negative (Negative); Urine Clarity Sl. Cloudy (Clear); Urine Urobilinogen 1 mg/dl (Normal); Urine pH 6.5 (5.0 - 8.0); White Blood Count 6.2 K/mm3 (4.4-11.0)
--- NOTE | 2023-11-26 16:44 | CT_ITS ---
EXAM: CT ABDOMEN AND PELVIS WITH INTRAVENOUS CONTRAST CLINICAL INDICATION: lower abd pain. fever TECHNIQUE: Helically acquired images were obtained of the abdomen and pelvis with intravenous contrast. This CT exam was performed using one or more of the following dose reduction techniques: automated exposure control, adjustment of the mA and/or kV according to patient size, and/or use of iterative reconstruction technique. CONTRAST: IV 100mL [id number] COMPARISON: No relevant prior studies available. FINDINGS: LOWER THORAX: Unremarkable. Lung bases are clear. No cardiomegaly. No significant pericardial effusion. ABDOMEN: LIVER: Unremarkable. Homogeneous. No focal mass. GALLBLADDER AND BILE DUCTS: Unremarkable. No calcified gallstones. No gallbladder distention or wall edema. No intra- or extrahepatic biliary ductal dilation. PANCREAS: Unremarkable. No focal cystic or solid mass. SPLEEN: Unremarkable. Normal size without focal cystic or solid mass. ADRENALS: Unremarkable. No nodules. KIDNEYS AND URETERS: Unremarkable. Normal renal size and position. No hydronephrosis. STOMACH AND BOWEL: Unremarkable. No stomach or bowel distention. No focal inflammatory change. PELVIS: APPENDIX: No evidence of acute appendicitis. BLADDER: Unremarkable. REPRODUCTIVE: Unremarkable as visualized. No mass. ABDOMEN and PELVIS: INTRAPERITONEAL SPACE: Unremarkable. No ascites or other fluid collection. No free air. BONES/JOINTS: Unremarkable. No suspicious lytic or blastic abnormality. SOFT TISSUES: Unremarkable. No discrete abdominal or pelvic wall hernia. VASCULATURE: Unremarkable. Abdominal aorta is non-dilated. LYMPH NODES: Unremarkable. No enlarged lymph nodes. CT/Abdomen/Pelvis W IV Cont ONLY IMPRESSION: Negative CT of the abdomen and pelvis with intravenous contrast. Electronically Signed: Raghu Avila MD at 17:25 EDT ,
[2023-11-26 16:46] LABS: ALB/GLOB Ratio 1.2 RATIO (0.9-2.4); AST(SGOT) 26 U/L (15-37); Alanine Aminotransfer ALT/SGPT 28 U/L (16-61); Albumin, Serum 3.9 g/dL (3.2-5.0); Alkaline Phosphatase 81 U/L (45-117); Anion Gap 2 (5-15); BUN 12 mg/dL (7-18); BUN/Creat Ratio 15.4 RATIO (10-20); Calcium,Total 9.1 mg/dL (8.5-10.1); Chloride 107 mmol/L (98-107); Creatinine, Serum 0.78 mg/dL (0.70-1.30); EST Glomerular Filtration Rate 130 mL/min (>60); Est Glom Filt Rate - Afr Amer 157 mL/min (>60); Estimated Creatinine Clearance 140.54 ml/min; Globulin 3.2 g/dL (2.2-4.2); Glucose 99 mg/dL (74-106); Potassium 3.9 mmol/L (3.5-5.1); Protein, Total 7.1 g/dL (6.4-8.2); Sodium Level 139 mmol/L (136-145)
[2023-11-26] MEDS: Metoclopramide 10 MG/2 ML Vial 5 MG IV (17:41)
[2023-11-26] MEDS: Ketorolac 15 MG/ML Vial IV (17:41)
[2023-11-26 17:44] VITALS: BP 120/74; PULSE 60
[2023-11-26 19:32] VITALS: BP 113/78; PULSE 69; RESP 16; TEMP 36.8; O2SAT 99
== END 2023-11-26 19:38 | disposition home or self-care (01) ==
PROVIDERS: Emergency Provider Emergency Medicine; PCP Nurse Practitioner Adult Health; Visit Provider Emergency Medicine
DX: G44.309 Post-traumatic headache, unspecified, not intractable (principal); R10.9 Unspecified abdominal pain; F17.210 Nicotine dependence, cigarettes, uncomplicated; R20.2 Paresthesia of skin; Z48.02 Encounter for removal of sutures
CPT/HCPCS: 70450; 74177; 80053; 81001; 85025; 96361; 96374; 96375; 99284; J7030; Q9967; A4216

== ENCOUNTER 2024-08-05 08:04 | Emergency (ER) | payer OTHER, SELFPAY ==
[2024-08-05 08:05] VITALS: BP 126/74; PULSE 60; RESP 19; TEMP 36.7; O2SAT 98; BMI 20.7
--- NOTE | 2024-08-05 08:07 | EDS_ITS ---
HPI History of Present Illness HPI Narrative: Patient presents with right hand injury Chief Complaint: Upper Extremity Injury PFSH PFSH Medical History Cat allergies cigarette smoke allergy Home Medications ?Medication ?Instructions ?Recorded ?Last Taken ?Type ondansetron 4 mg disintegrating 4 mg PO Q8H PRN PRN Na usea #20 tabs 11/26/23 Unknown Rx tablet Allergy/AdvReac Type Severity Reaction Status Date / Time No Known Allergies Allergy Verified 08/05/24 08:05 Family History Other weak knees Social History Smoking Status: Current every day smoker tobacco type: cigarettes and e- cigarettes alcohol intake: never Discharge Plan Triage Chief Complaint: Upper Extremity Injury ED Provider: Nile Lee Dx/Rx/DC Orders Prescriptions: No Action ondansetron 4 mg tablet,disintegrating 4 mg PO Q8H PRN PRN (Reason: Nausea) Qty: 20 0RF Print Language: Slovak
--- NOTE | 2024-08-05 08:07 | EX.ED.UPPERE ---
HPI History of Present Illness HPI Narrative: Patient presents with right hand injury that occurred 5 days ago. Patient states he was carrying some equipment up some steps when he missed a step and fell forward. Patient states he landed on his right hand. Patient states his pain is constant aching but sharp with movement. Patient states his pain is worse with any movement and better with rest. Patient denies any head injury or loss of consciousness. Patient denies any other injuries. Chief Complaint: Upper Extremity Injury Occured/Mechanism Mechanism/Context: Yes direct blow and Yes fall Onset/Context/Timing Onset: Days (5 days ago) Context: Sudden Onset Timing: Continuous Quality of Pain: Sharp (With movement) and Dull Location: Right hand, 4th and 5th metacarpals Worsened by: Movement Relieved by: Rest Associated Symptoms Associated Symptoms: Negative for Parasthesia, Weakness or Loss of Funtion PFSH PFS Medical History Cat allergies cigarette smoke allergy Home Medications ?Medication ?Instructions ?Recorded ?Last Taken ?Type ondansetron 4 mg disintegrating 4 mg PO Q8H PRN PRN Nausea #20 tabs 11/26/23 Unknown Rx tablet hydrocodone-acetaminophen 5-325mg 1 tab PO Q6H PRN PRN Pain 3 days 08/05/24 Unknown Rx 5mg-325mg #10 TABLETS Allergy/AdvReac Type Severity Reaction Status Date / Time No Known Allergies Allergy Verified 08/05/24 08:05 Family History Other weak knees Surgical History no surgical history no surgical history Social History Smoking Status: Current every day smoker tobacco type: cigarettes and e-cigarettes alcohol intake: never ROS ROS ED Constitutional Constitutional ED: Denies chills or fever(s) Eyes Eyes: Denies blurry vision or change in vision ENT ENT ED: Denies rhinorrhea or sore throat Cardiovascular Cardiovascular: Denies chest pain or palpitations Respiratory/Chest Respiratory/Chest: Denies cough or dyspnea Gastrointestinal Gastrointestinal: Denies nausea or vomiting Genitourinary Genitourinary ED: Denies dysuria or hematuria Musculoskeletal Musculoskeletal: Reports back pain and neck pain Integumentary Denies abscess or rash Neurologic Neurologic: Denies headache(s) or weakness Allergic/Immunologic Allergic/Immunologic ED: Denies mouth swelling or urticaria EXAM Physical Exam Const Positive well nourished and well developed Constitutional Narrative: BMI is 20.8 General Appearance ED: well developed and NAD HEENT Reports moist mucous membranes normocephalic and atraumatic Neck full ROM and supple Extremity Extremity Narrative: There is tenderness and edema over the right hand over the 4th and 5th metacarpal areas. There is no obvious deformity noted. Range of motion was limited in all motions of the right hand and wrist secondary to pain. Strength is 5/5 in the radial, median, and ulnar areas. Sensation was intact to light touch in the radial, median, and ulnar areas. Radial pulses are equal bilaterally. General Extremety ED: Yes edema General Extremity: edema Neuro oriented x3, CN's II-XII intact bilaterally, moves all extremities, no focal motor deficits and no sensory deficits noted Sensorium / Orientation: alert Motor Exam: strength 5/5 throughout Psych mental status grossly normal MDM MDM MDM Narrative Medical decision making narrative: Differential diagnosis includes fracture, contusion, and sprain. X-rays of the right hand will be obtained to assess for fracture. Radiography Diagnostic Testing: X-rays of the right hand were obtained. There are 3 views. On my independent interpretation, there is a oblique fracture through the proximal diaphysis of the fourth metacarpal. There is some mild comminution. There is no displacement. Radiologist also interpreted the x-rays and agrees. Treatment and Re-Evaluation Narrative: Nicotine cessation was discussed. Patient was advised of his findings. Patient was placed in a well-padded custom made volar splint to the right hand and forearm. Neurovascular exam was intact before and after application of the splint. Patient was instructed to ice and elevate the right hand. Patient was instructed to follow-up with his primary care physician in 5 to 7 days. Patient was also given referral for orthopedics. Patient was given a prescription for Sargent. Patient understood and was agreeable with the plan. All questions were answered. Discharge Plan Triage Chief Complaint: Upper Extremity Injury ED Provider: Nile Lee Dx/Rx/DC Orders Clinical Impression: Fracture of fourth metacarpal bone of right hand, Fall Instructions: ED Closed Hand Fracture (Adult) Prescriptions: New hydrocodone-acetaminophen 5-325 mg tablet 1 tab PO Q6H PRN PRN (Reason: Pain) 3 Days Qty: 10 0RF No Action ondansetron 4 mg tablet,disintegrating 4 mg PO Q8H PRN PRN (Reason: Nausea) Qty: 20 0RF Referrals: Hector Eubanks MD [Med Staff - Active Staff] - 3-5 Days [facility] [Non-Staff] - 5-7 Days Print Language: [place]uran Disposition Disposition: Home, Self Care
--- NOTE | 2024-08-05 08:25 | RAD_ITS ---
EXAM: XR Right Hand Complete, 3 or More Views CLINICAL INDICATION: INJURY/PAIN TECHNIQUE: Frontal, lateral and oblique views of the right hand. COMPARISON: No relevant prior studies available. FINDINGS: BONES/JOINTS: Comminuted mildly displaced fracture of the 4th metacarpal. No dislocation. SOFT TISSUES: Soft tissue swelling. No radiopaque foreign body. RAD/Hand Min 3 Views IMPRESSION: Comminuted mildly displaced fracture of the 4th metacarpal. Reading Location: [facility]
[2024-08-05] MEDS: HYDROcodone Bitartrate/Apap 5/325 Tablet PO (08:44)
[2024-08-05 10:04] VITALS: BP 128/78; PULSE 64; RESP 18; TEMP 36.6; O2SAT 99
== END 2024-08-05 10:16 | disposition home or self-care (01) ==
PROVIDERS: Emergency Provider Emergency Medicine; Visit Provider Emergency Medicine
DX: S62.304A Unspecified fracture of fourth metacarpal bone, right hand, initial encounter for closed fracture (principal); F17.290 Nicotine dependence, other tobacco product, uncomplicated; F17.210 Nicotine dependence, cigarettes, uncomplicated; W10.9XXA Fall (on) (from) unspecified stairs and steps, initial encounter
CPT/HCPCS: 29125; 73130; 99282